=== PATIENT | male | born 1955 | race Caucasian/White ===

== ENCOUNTER 2019-03-04 08:52 | Inpatient (IN) ==
--- NOTE | 2019-02-25 08:53 | EKG Report ---
Test Performed on : 02/25/2019 08:43:19 AM Test Reason : PAT Blood Pressure : / mmHG Vent. Rate : 055 BPM Atrial Rate : 055 BPM P-R Int : 168 ms QRS Dur : 096 ms QT Int : 422 ms P-R-T Axes : 039 040 044 degrees QTc Int : 403 ms Sinus bradycardia. Possible Left atrial enlargement Borderline ECG No previous ECGs available Confirmed by Merrill Elam MD ([id number]) on 02/25/2019 12:26:06 PM
[2019-02-25 09:09] LABS: URINE SOURCE CLEAN CATCH
[2019-02-25 09:49] LABS: BASO# 0.03 X1000 (0.0-0.2); BASO% 0.4 % (0.0-0.8); EOS# 0.41 X1000 (0.0-0.7); EOS% 5.9 % (0.0-10.0); HEMATOCRIT 43.1 % (42.0-52.0); HEMOGLOBIN 13.9 g/dL (14.0-18.0); LYMPH# 2.12 X1000 (1.2-3.4); LYMPH% 30.5 % (20.5-51.1); MCH 29.5 PG (27-31); MCHC 32.3 g/dL (33-37); MCV 91.5 FL (81-99); MONO% 10.1 % (1.7-9.3); MPV 9.6 FL (7.4-10.4); NEUT# 3.68 X1000 (1.4-6.5); NEUT% 53.1 % (42.2-75.2); PLT 223 X1000 (130-400); RBC 4.71 XMIL (4.7-6.1); RDW 13.1 % (11.5-14.5); WBC 6.94 X1000 (4.8-10.8)
[2019-02-25 09:52] LABS: BILIRUBIN URINE NEGATIVE (NEGATIVE); BLOOD URINE NEGATIVE (NEGATIVE); COLOR STRAW; GLUCOSE URINE NEGATIVE (NEGATIVE); KETONE URINE NEGATIVE (NEGATIVE); LEUKOCYTES URINE NEGATIVE (NEGATIVE); NITRITE URINE NEGATIVE (NEGATIVE); PROTEIN URINE NEGATIVE (NEGATIVE); SP GRAVITY URINE 1.006; TURBIDITY URINE CLEAR (CLEAR); UROBILINOGEN URINE NORMAL (NORMAL)
[2019-02-25 09:53] LABS: UR EPITHELIAL CELLS <10 /HPF (<10); URINE BACTERIA NEGATIVE /HPF; URINE RBC <10 /HPF (<10); URINE WBC <10 /HPF (<10)
[2019-02-25 10:05] LABS: INR 0.99; PROTIME 13.2 Seconds (11.0-16.0)
[2019-02-25 10:06] LABS: PTT 33.2 Seconds (22.3-41.8)
[2019-02-25 10:21] LABS: POTASSIUM 4.9 mmol/L (3.5-5.1); SODIUM 139 mmol/L (136-145)
[2019-02-25 10:22] LABS: AGAP 8; BUN 20 mg/dL (8-22); CALCIUM 9.4 mg/dL (8.8-10.2); CHLORIDE 103 mmol/L (98-107); COSMO 280; CREATININE 0.8 mg/dL (0.7-1.2); ESTIMATED GFR > 60; GLUCOSE 101 mg/dL (70-104); TCO2 28 mmol/L (25-35)
[2019-02-25 11:18] LABS: HEMOGLOBIN A1C 5.3 % (4.8-6.0)
[2019-03-04] MEDS ORDERED: COLACE ONE (09:14)
[2019-03-04] MEDS ORDERED: PEPCID ONE (09:14)
[2019-03-04] MEDS ORDERED: REGLAN ONE (09:14)
[2019-03-04] MEDS ORDERED: LR 1,000 ML ONE (09:15)
[2019-03-04] MEDS ORDERED: KEFZOL 1 GM/D5W 2 GM/100 ML IVPB ONE (09:15)
[2019-03-04] MEDS ORDERED: LYRICA ONE (09:15)
[2019-03-04] MEDS ORDERED: CELEBREX ONE (09:15)
[2019-03-04] MEDS ORDERED: DUONEB (A & A) INH ONE (10:51)
[2019-03-04] MEDS ORDERED: SODIUM CHLORIDE 0.9% ONE (10:53)
[2019-03-04] MEDS ORDERED: CYKLOKAPRON 1,000 MG/NS 1,000 MG/100 ML IVPB ONE (10:53)
[2019-03-04] MEDS ORDERED: MARCAINE 0.25% PF ONE (10:53)
[2019-03-04] MEDS ORDERED: DURAMORPH ONE (10:53)
[2019-03-04] MEDS ORDERED: TORADOL ONE (10:53)
[2019-03-04] MEDS ORDERED: EXPAREL 1.3% ONE (10:54)
[2019-03-04] MEDS ORDERED: SUFENTA ONE (11:25)
[2019-03-04] MEDS ORDERED: APRESOLINE ONE (11:52)
[2019-03-04] MEDS ORDERED: QUELICIN (DOSE) ONE (12:03)
[2019-03-04] MEDS ORDERED: DIPRIVAN 1% ONE (12:04)
[2019-03-04] MEDS ORDERED: OFIRMEV 1000 MG/ISOTONIC SOLN 1,000 MG/100 ML BOTTLE ONE (12:07)
[2019-03-04 12:37] LABS: URINE SOURCE CATH
[2019-03-04 12:43] LABS: BILIRUBIN URINE NEGATIVE (NEGATIVE); BLOOD URINE NEGATIVE (NEGATIVE); COLOR YELLOW; GLUCOSE URINE NEGATIVE (NEGATIVE); KETONE URINE NEGATIVE (NEGATIVE); LEUKOCYTES URINE NEGATIVE (NEGATIVE); NITRITE URINE NEGATIVE (NEGATIVE); PH URINE 6.5; PROTEIN URINE TRACE mg/dL (NEGATIVE); SP GRAVITY URINE 1.033; TURBIDITY URINE CLEAR (CLEAR); UROBILINOGEN URINE 2 mg/dL (NORMAL)
[2019-03-04 12:45] LABS: UR EPITHELIAL CELLS <10 /HPF (<10); URINE BACTERIA NEGATIVE /HPF; URINE RBC <10 /HPF (<10); URINE WBC <10 /HPF (<10)
[2019-03-04] MEDS ORDERED: DECADRON ONE (12:49)
[2019-03-04] MEDS ORDERED: ZOFRAN ONE (12:49)
[2019-03-04] MEDS: DILAUDID ONE ×2 (13:16→13:34)
--- NOTE | 2019-03-04 13:40 | Diag Imaging Result Doc PS360 ---
EXAM: SHOULDER 1 VIEW LEFT 03/04/2019 HISTORY: post op TECHNIQUE: AP portable at 1330 COMMENT: There is a total shoulder arthroplasty. There is no evidence of acute fracture or dislocation. IMPRESSION: Postsurgical change. Electronically signed by Prashant Fan 03/04/2019 1:38 PM
[2019-03-04] MEDS ORDERED: OXY IR ONE (13:45)
[2019-03-04] MEDS ORDERED: NS 1,000 ML ONE (13:54)
[2019-03-04] MEDS ORDERED: ZOFRAN PO PRN (15:30)
[2019-03-04] MEDS ORDERED: OXY IR PO PRN ×2 (15:30)
[2019-03-04] MEDS ORDERED: MILK OF MAGNESIA PO PRN (15:30)
[2019-03-04] MEDS ORDERED: NS 1,000 ML IV SCH (15:30)
[2019-03-04] MEDS ORDERED: MORPHINE IV PRN ×3 (15:30)
[2019-03-04] MEDS ORDERED: CYKLOKAPRON 1,000 MG in NS 100 ML IV ONE (17:15)
--- NOTE | 2019-03-04 18:35 | OPERATIVE NOTE ---
PROCEDURE DATE: 03/04/2019 PREOPERATIVE DIAGNOSIS: Left glenohumeral arthritis with chronic rotator cuff tear. POSTOPERATIVE DIAGNOSIS: Left glenohumeral arthritis with chronic rotator cuff tear. PROCEDURE: Left reverse shoulder arthroplasty with DePuy Delta Xtend size 12 press-fit stem with a 42 +6 humeral cup, a 42 eccentric +2 mm lateralize glenosphere, and a standard metaglene. SURGEON: Colton Killian MD BELL NECK HAMMERER: KJ Chris, who was necessary for proper retraction, manipulation of the extremity during the case, and improved efficiency. SECOND CODING COORDINATOR: Gabo Cervantes RN ANESTHESIA: General. INTRAVENOUS FLUIDS: 1200 mL lactated Ringer's. ESTIMATED BLOOD LOSS: 250 mL. COMPLICATIONS: None. INDICATION: The patient is a pleasant 63-year-old male with a chronic history of pain, discomfort, and weakness of the left upper extremity. Patient states he had an injury to his left shoulder many years ago. He underwent an arthroscopy of the left shoulder approximately a year and half ago per Dr. Padron and was noted to have some underlying degenerative changes as well as a chronic irreparable rotator cuff tear. The patient continued with pain, discomfort, and weakness of the left upper extremity. Given the patient's findings, recommendation to proceed with left reverse total shoulder arthroplasty was offered. Risks and benefits of surgery were explained, including the risks of anesthesia, , bleeding, infection, failure to relieve pain, postoperative stiffness, nerve injury, blood clots, and other imponderables. All questions were answered and the patient and family wished to proceed with the surgery. DETAILS OF THE OPERATION: Patient was taken to the operating room and placed supine on the operating table. Once adequate anesthesia was obtained, patient was placed in semi-[place] beach- chair position. The left shoulder was subsequently prepped and draped in the usual sterile fashion. A standard deltopectoral incision was made with a skin knife. Hemostasis was obtained using electrocautery. The deltopectoral interval was then developed. Right- angle retractor was then placed. Attention then turned to the subscapularis tendon. Approximately 1 cm medial to its insertion, it was released. A stay suture was placed in the medial aspect of the tendon. The shoulder was then dislocated anteriorly. Further release of the posterior superior aspect of the rotator cuff was performed. Attention was then turned to the proximal humerus, where a starting reamer was passed. Intramedullary guide with sequential reaming was conducted up to size 12. The intramedullary guide was placed in position and the proximal humeral cutting block was pinned in position in approximately 15 degrees of retroversion. The humeral head was then resected. A protective disk was then placed. An inferior osteophyte was removed with a rongeur. Attention was then turned to the glenoid. There appeared significant tightness. Therefore a few more millimeters of the proximal humerus was resected. Protective disk was placed for protection. Attention was then turned to the glenoid once again. A circumferential dissection was performed with a deep knife. A guide was then placed in position and the guide pin was then placed. Reaming was then conducted. The central hole was then dilated. The guide pin was then removed. The wound was copiously irrigated with antibiotic pulsatile lavage. A standard metaglene was then placed in position. Two locking screws were placed and 2 nonlocking screws. Had good fixation. The wound was copiously irrigated once again with antibiotic pulsatile lavage. A 42 eccentric +2 mm lateralized glenosphere was then placed with the eccentricity placed inferiorly. After this had been performed, attention then turned to the proximal humerus. Intramedullary guide was placed in position. The proximal humerus was reamed. The wound was copiously irrigated with antibiotic pulsatile lavage. A size 12 press-fit stem was impacted in approximately 15 degrees of retroversion and had good fit. A trial cup size was performed and a +6 appeared to the correct size. Trial cups were removed. The wound was copiously irrigated with antibiotic pulsatile lavage. A 42 +6 humeral cup was then placed. The shoulder was reduced, carried through range of motion, and had excellent stability and range of motion. Exparel was placed in the deep soft tissue as well as subcutaneous tissue. Copious irrigation was then performed with antibiotic pulsatile lavage. A #2 FiberWire was used to repair the subscapularis tendon. Final irrigation was then performed. A 2-0 Vicryl was then used to repair the subcutaneous tissue, followed by a running 2-0 Prolene. Benzoin and Steri-Strips were applied. Adaptic, sterile 4 x 4's, ABD pad, and tape were applied to the left shoulder. Patient tolerated procedure well. No complications. Transferred to the recovery room in stable condition. cc: Colton Killian MD MTDD
[2019-03-04] MEDS: TYLENOL PO SCH (19:10)
[2019-03-04] MEDS: KEFZOL 2 GM/D5W 2 GM/50 ML IVPB IV SCH (20:54)
[2019-03-05] MEDS: COLACE PO SCH ×2 (00:02→10:02)
[2019-03-05] MEDS: TYLENOL PO SCH ×2 (00:03→06:46)
[2019-03-05] MEDS: PERIDEX MT SCH ×2 (00:03→10:02)
[2019-03-05] MEDS: KEFZOL 2 GM/D5W 2 GM/50 ML IVPB IV SCH (03:25)
[2019-03-05 06:16] LABS: HEMATOCRIT 37.8 % (42.0-52.0); HEMOGLOBIN 12.3 g/dL (14.0-18.0)
[2019-03-05 06:27] LABS: AGAP 10; BUN 17 mg/dL (8-22); CALCIUM 8.7 mg/dL (8.8-10.2); CHLORIDE 107 mmol/L (98-107); COSMO 286; CREATININE 0.7 mg/dL (0.7-1.2); ESTIMATED GFR > 60; GLUCOSE 125 mg/dL (70-104); POTASSIUM 4.1 mmol/L (3.5-5.1); SODIUM 142 mmol/L (136-145); TCO2 25 mmol/L (25-35)
--- NOTE | 2019-03-05 07:10 | ORTHOPAEDICS PROGRESS NOTE ---
DATE: 03/05/2019 SUBJECTIVE: The patient is a pleasant, 63-year-old male, who is 1 day status post left reverse shoulder arthroplasty. He is currently resting comfortably. OBJECTIVE: On physical exam, the patient's left upper extremity dressing is intact. His is neurovascularly intact distally. Good well blower strength. Able to flex all of his fingers. LABORATORY DATA: Hemoglobin is 12.3, hematocrit is 37.8. IMPRESSION: Postoperative day #1, status post left reverse total shoulder arthroplasty. PLAN: At this point, the patient will plan on discharging home. Will arrange for outpatient physical therapy. The patient will follow up in the office on 03/16/2019. cc: Colton Killian MD
[2019-03-05] MEDS ORDERED: XANAX PO SCH (09:00)
[2019-03-05 10:26] VITALS: BP 163/78
== END 2019-03-05 11:37 | disposition home or self-care (01) | DRG 483 ==
LOC: SURHOLD 08:52 → 4N 11:24
PROVIDERS: ADMIT Orthopaedic Surgery Adult Reconstructive Orthopaedic Surgery; ATTEND Orthopaedic Surgery Adult Reconstructive Orthopaedic Surgery